=== PATIENT | male | born 1955 | race Caucasian/White ===

== ENCOUNTER 2016-08-04 14:35 | Emergency (ER) | payer OTHER ==
--- NOTE | 2016-08-04 16:11 | DIAGNOSTIC IMAGING REPORT ---
PROCEDURE: US SCROTUM/TESTICLE INDICATION: SCROTAL PAIN TECHNIQUE: Finch scale and color Doppler sonographic images through the scrotum were obtained. COMPARISON: None. FINDINGS: RIGHT TESTICLE: Measures 4.7 x 3.3 x 2.4 cm. Normal echo structure and vascularity. Small epididymal head cysts versus spermatoceles. LEFT TESTICLE: Measures 5.1 x 2.9 x 2.4 cm. Normal echo structure and vascularity. Small epididymal head cysts versus spermatoceles. IMPRESSION: 1. Normal testicles 2. Small bilateral epididymal head cysts versus spermatoceles.
--- NOTE | 2016-08-04 16:59 | ED ORDER SUMMARY ---
..... Patient: ILANA FRENCH OrderSheet [facility] VisitID: [id number] [place] [address] 61y, M Registration Date/Time: 08/04/2016 ORDER SHEET Weight: 77.1 kg Allergies: Codeine GENERAL ORDERS: CBC w Diff Urgent (14:53 08/04/2016 EKoroleva P.A.-C) (Ack 14:55 LNations ER Tech1) (15:22 CHernandez R.N.) CMP Urgent (14:53 08/04/2016 EKoroleva P.A.-C) (Ack 14:55 LNations ER Tech1) (15:22 CHernandez R.N.) UA-Culture if indicated Urgent (14:53 08/04/2016 EKoroleva P.A.-C) (Ack 14:55 LNations ER Tech1) (16:10 CHernandez R.N.) US Scrotum/Testicular Urgent (15:16 08/04/2016 EKoroleva P.A.-C) (Ack 15:19 LNations ER Tech1) (16:10 CHernandez R.N.) GC/Chlamydia, Urine (Urine, Clean Catch) (g) Urgent (15:40 08/04/2016 EKoroleva P.A.-C) (Ack 15:55 LNations ER Tech1) (16:10 CHernandez R.N.) MEDICATION ORDERS: Dexamethasone PO 8mg (NOW) (15:04 08/04/2016 EKoroleva P.A.-C) (Ack 15:22 CHernandez R.N.) (15:29 CHernandez R.N.) Amoxicillin PO 500 mg (NOW) (15:04 08/04/2016 EKoroleva P.A.-C) (Ack 15:22 CHernandez R.N.) (15:29 CHernandez R.N.) IV FLUIDS: ORDER SHEET NOTES: [Electronically signed by Mathew Chapa R.N. (17:13 08/04/2016)] [Electronically signed by Elena Perales PSachinASachin-C (21:03 08/04/2016)] [Electronically locked/signed by Mathew Chapa R.N. (17:13 08/04/2016)]
--- NOTE | 2016-08-04 16:59 | ED ORDER SUMMARY ---
..... Patient: ILANA FRENCH OrderSheet [facility] VisitID: [id number] [place] [address] 61y, M Registration Date/Time: 08/04/2016 ORDER SHEET Weight: 77.1 kg Allergies: Codeine GENERAL ORDERS: CBC w Diff Urgent (14:53 08/04/2016 EKoroleva P.A.-C) (Ack 14:55 LNations ER Tech1) (15:22 CHernandez R.N.) CMP Urgent (14:53 08/04/2016 EKoroleva P.A.-C) (Ack 14:55 LNations ER Tech1) (15:22 CHernandez R.N.) UA-Culture if indicated Urgent (14:53 08/04/2016 EKoroleva P.A.-C) (Ack 14:55 LNations ER Tech1) (16:10 CHernandez R.N.) US Scrotum/Testicular Urgent (15:16 08/04/2016 EKoroleva P.A.-C) (Ack 15:19 LNations ER Tech1) (16:10 CHernandez R.N.) GC/Chlamydia, Urine (Urine, Clean Catch) (g) Urgent (15:40 08/04/2016 EKoroleva P.A.-C) (Ack 15:55 LNations ER Tech1) (16:10 CHernandez R.N.) MEDICATION ORDERS: Dexamethasone PO 8mg (NOW) (15:04 08/04/2016 EKoroleva P.A.-C) (Ack 15:22 CHernandez R.N.) (15:29 CHernandez R.N.) Amoxicillin PO 500 mg (NOW) (15:04 08/04/2016 EKoroleva P.A.-C) (Ack 15:22 CHernandez R.N.) (15:29 CHernandez R.N.) IV FLUIDS: ORDER SHEET NOTES: [Electronically signed by Mathew Cahpa R.N. (17:13 08/04/2016)] [Electronically signed by Elena Perales PSachinASachin-C (21:03 08/04/2016)] [Electronically locked/signed by Mathew Chapa R.N. (17:13 08/04/2016)]
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
--- NOTE | 2016-08-04 16:59 | ED CLINICAL REPORT ---
Clinical Report - Physicians/Mid Levels [facility] [address] [place] [address] 08/04/2016 14:37 Patient: ILANA FRENCH Time Seen: 1453 Aug 04 2016. Arrived- By private vehicle. Historian- patient. HISTORY OF PRESENT ILLNESS Chief Complaint: right ear pain, right flank pain. This started yesterday and is still present. No weight loss or headache. (Patient reports a bee flew into his area second, and stung him, he has had right ear pain since. Patient reports swelling to the ear. He is not taking any medications for this. Denies any difficulty with sound. In addition patient reports right flank pain radiating into his testicle off and on for the last year. Denies any dysuria, urgency or frequency. Denies any nausea or vomiting, or diarrhea. Reports testicular pain earlier today, however none now. Denies any discharge. Denies any trauma.). REVIEW OF SYSTEMS No fever, chills or headache. All systems otherwise negative, except as recorded above. PAST HISTORY Problems: Lumbar Strain. Immunizations. Hepatitis C. Bowel Obstruction. Back Pain. Additional Surgeries: Back Surgery. Bowel resection. Bowel Surgery. Legs and back. Splenectomy. Medications: None. Allergies: Codeine. SOCIAL HISTORY Former smoker. Alcohol use. PHYSICAL EXAM Appearance: Alert. No acute distress. Eyes: Eyes normal inspection. ENT: Swelling of the right ear, small area of canal is present, able to see parts of the TM, no TM erythema, no visualized foreign body. Neck: Normal inspection. CVS: Normal heart rate and rhythm. Respiratory: No respiratory distress. Breath sounds normal. Abdomen: Soft. Bowel sounds normal. No rebound tenderness. : Normal genitalia. Testes descended. (Chaperoned with SUMMER Carmona.). LABS, X-RAYS, AND EKG Laboratory Tests: UA-Culture if indicated: (KRISTIN: 08/04/2016 16:05) ( MsgRcvd 08/04/2016 16:37) Final results Test Result Flag Units (Reference) URINE COLOR YELLOW URINE APPEARANCE CLEAR URINE GLUCOSE NEGATIVE (NEGATIVE) URINE BILIRUBIN NEGATIVE (NEGATIVE) URINE KETONE NEGATIVE (NEGATIVE) URINE SPECIFIC GRAVITY 1.020 (1.010-1.030) URINE PH 7.0 (5.0-8.0) URINE PROTEIN NEGATIVE (NEGATIVE) URINE UROBILINOGEN 0.2 EU/dL (0.2-1.0) URINE NITRITE NEGATIVE (NEGATIVE) URINE BLOOD NEGATIVE (NEGATIVE) URINE LEUK ESTERASE NEGATIVE (NEGATIVE) URINE RBC NONE SEEN rbc/hpf (0-1) URINE WBC 0-1 wbc/hpf (0-1) URINE EPITHELIAL CELLS RARE EPI/hpf (0-5) URINE BACTERIA TRACE (<1+) (NONE SEEN) URINE COMMENT CULT NOT INDICATED URINE CULTURES ARE SET-UP BASED ON THE FOLLOWING CRITERIA:POSITIVE NITRITEPOSITIVE LEUKOCYTE ESTERASEGREATER THAN 10 WHITE BLOOD CELLSMODERATE (2+) OR GREATER BACTERIA CBC w Diff: (KRISTIN: 08/04/2016 15:00) ( [facility] 08/04/2016 15:14) Final results Test Result Flag Units (Reference) WHITE BLOOD COUNT 4.7 K/uL (4.5-11.5) RED BLOOD COUNT 5.17 M/uL (4.50-5.90) HEMOGLOBIN 15.1 gm/dL (13.5-17.5) HEMATOCRIT 46.2 % (41.0-53.0) MEAN CELL VOLUME 89 fL (80-100) MEAN CORPUSCULAR HGB 29 pg (26-34) MEAN CORPUSCULAR HGB CONC 33 g/dL (31-37) RED CELL DISTRIBUTION WIDTH 12.9 % (11.6-14.8) PLATELET COUNT 215 K/uL (150-400) LYMPH % 33.7 % (25-40) MONO % 4.6 % (3-14) GRANULOCYTE % 61.7 CMP: (KRISTIN: 08/04/2016 15:00) ( [facility] 08/04/2016 15:32) Final results Test Result Flag Units (Reference) GLUCOSE 92 mg/dL (70-110) BUN 17 mg/dL (7-18) CREATININE 0.9 mg/dL (0.6-1.3) Estimated GFR >60 mL/min Estimated GFR- >60 mL/min Note: Persistent reduction over 3 months in eGFR<60 mL/min/1.73 m2 defines CKD. Patients with eGFR values>=60 mL/min/1.73 m2 may also have CKD if evidence ofpersistent proteinuria. Additional information may be foundat www.kidney.org. SODIUM 144 mmol/L (136-145) POTASSIUM 3.7 mmol/L (3.5-5.1) CHLORIDE 107 mmol/L (98-107) CARBON DIOXIDE 29 mmol/L (21-32) CALCIUM 9.1 mg/dL (8.5-10.1) TOTAL PROTEIN 7.3 g/dL (6.4-8.2) ALBUMIN 3.5 g/dL (3.3-5.0) BILIRUBIN, TOTAL 0.4 mg/dL (0.0-1.0) ALKALINE PHOSPHATASE 79 U/L (46-116) AST (SGOT) 40 H U/L (15-37) ALT (SGPT) 77 U/L (12-78) . PROGRESS AND PROCEDURES Course of Care: Small amount of the canal is visible on the right side, I did not visualize a foreign body in this area, however patient reports he believes there may still be there,he was started on antibiotics, steroids. There was no drainage of the ear. He will need hold for the ear to ensure improvement. In regard to his right flank pain, abdomen is soft nontender with no signs of acute surgical abdomen. Labs are as above and are unremarkable. Patient with negative ultrasound. 08/04/2016 17:11 BP: 121/76. HR: 90. RR: 16. O2 saturation: 100%. Temp: 98.2 F. Pain level now: 5/10. Patient is stable. Symptoms better. Patient/family counseled. Disposition: Discharged. Condition: good. CLINICAL IMPRESSION Acute right otitis media. Right otitis externa. Single insect bite. (R. ear). Acute right flank pain INSTRUCTIONS (Medical [facility] (establish primary care for follow up please) ). Warnings: Further evaluation is necessary. Prescription Medications: Amoxicillin 500 mg tablets: take 1 orally every 8 hours for 10 days. No refills. Cipro 500 mg: take 1 tab orally every 12 hours for 10 days. No refills. Substitution is permissible. OTC Medications: Benadryl Allergy 25 mg (available over the counter): take 1 orally every 8 hours for 5 days, as needed for itching. Dispense ten (10). No refill. Substitution is permissible. Follow-up: Follow up with your doctor in two days. Follow-up with: Aiden Burnett MD, ENT, , [address], , [place], [address] Follow up. Call for the next available appointment. (Electronically signed by Elena Perales P.A.-C 08/04/2016 21:03)
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
--- NOTE | 2016-08-04 21:04 | ED MED RECONCILIATION SUMMARY ---
Patient: ILANA FRENCH Medication Reconciliation Report [facility] VisitID: [id number] [place] [address] 61y, M Registration Date/Time: 08/04/2016 Weight: 77.1 kg Height/Length: 71 in. BMI: 23.7 ALLERGIES: Codeine The patient's Home Medications are listed below: NONE. The source(s) of the original Home Medication information: patient The following Medications were given to the patient in the Emergency Department: Dexamethasone [PO] PO 8 mg, administered: 08/04/2016 3:24:00 PM Amoxicillin [PO] PO 500 mg, administered: 08/04/2016 3:24:00 PM The following Medications were prescribed to the patient: Amoxicillin 500 mg tablets: take 1 orally every 8 hours for 10 days. No refills. -- Elena Perales, P.A.-Nawaf Cipro 500 mg: take 1 tab orally every 12 hours for 10 days. No refills. Substitution is permissible. -- Elena Perales, P.A.-Nawaf Benadryl Allergy 25 mg (available over the counter): take 1 orally every 8 hours for 5 days, as needed for itching. Dispense ten (10). No refill. Substitution is permissible. -- Elena Perales P.A.-C
--- NOTE | 2016-08-04 21:04 | ED DISCHARGE INSTRUCTIONS ---
Patient: ILANA FRENCH General Instructions Merged With [facility] VisitID: [id number] [place] [address] 61y, M Registration Date/Time: 08/04/2016 Acute right otitis media. Right otitis externa. Single insect bite. (R. ear). Acute right flank pain INSTRUCTIONS ([facility] (establish primary care for follow up please) ). Warnings: Further evaluation is necessary. Prescription Medications: Amoxicillin 500 mg tablets: take 1 orally every 8 hours for 10 days. No refills. Cipro 500 mg: take 1 tab orally every 12 hours for 10 days. No refills. Substitution is permissible. OTC Medications: Benadryl Allergy 25 mg (available over the counter): take 1 orally every 8 hours for 5 days, as needed for itching. Dispense ten (10). No refill. Substitution is permissible. Follow-up: Follow up with your doctor in two days. Follow-up with: Aiden Burnett MD, ENT, , [address], , [place], [id number] Follow up. Call for the next available appointment. ADDITIONAL INFORMATION External Ear Infection [Adult] This is an infection in the ear canal due to an overgrowth of bacteria or fungus. This often occurs a few days after water gets trapped in the ear canal (swimming or bathing). It may also occur after cleaning too deeply in the ear canal with a cotton swab or other object. Sometimes hair care products get into the ear canal and cause this problem. There may be itching, redness, drainage, or swelling of the ear canal and temporary loss of hearing. Home Care: Do not try to clean the ear canal. That could push pus and bacteria deeper into the canal. Use the drops prescribed to reduce swelling and fight the infection. If an EAR WICK was placed in the ear canal, apply drops right onto the end of the wick. The wick will draw the medicine into the ear canal even if it is swollen closed. Do not allow water to get into your ear when bathing. No swimming during this time. A cotton ball may be loosely placed in the outer ear to absorb any drainage. You may use acetaminophen (Tylenol) or ibuprofen (Motrin, Advil) to control pain, unless another medicine was prescribed. [NOTE: If you have chronic liver or kidney disease or ever had a stomach ulcer or GI bleeding, talk with your doctor before using these medicines.] Preventing Future Infections: You can usually avoid this problem by using an eardrop that removes the water from your ear canal when you feel there is water trapped there. You can get these drops over the counter (Swim Ear, Aqua Ear and other brands). Follow Up with your doctor or this facility in one week or as instructed by our staff. Get Prompt Medical Attention if any of the following occur: Ear pain becomes worse or does not begin to improve after 3 days of treatment Redness or swelling of the outer ear occurs or gets worse Headache, painful or stiff neck, Feeling drowsy or confused Fever of 100.4F (38C) or higher, or as directed by your healthcare provider Seizure Insect Bite/Sting, Infected You have been stung or bitten by an insect. Signs of infection include redness, itching, and slight swelling. Infections will need treatment with antibiotics and should improve over the next ten days. Home care The following will help you care for your bite or sting at home: If itching is a problem, applying ice packs to the sting area will help. Wash the area with soap and water at least three times a day. Apply a topical antibiotic cream or ointment. You can use an over-the counter antihistamine unless you were given a prescription antihistamine. Antihistamines may be used to reduce itching if large areas of the skin are involved. Use lower doses during the daytime and higher doses at bedtime since the drug may make you sleepy. Do not use an antihistamine if you have glaucoma or if you are a man with trouble urinating due to an enlarged prostate. Some antihistamines cause less drowsiness and are a good alternative for daytime use. If oral antibiotics have been prescribed, be sure to take them as directed until they are all finished. You may use acetaminophen or ibuprofen to control pain, unless another pain medicine was prescribed.If you have chronic liver or kidney disease or ever had a stomach ulcer or GI bleeding, talk with your doctor before using these medicines. Follow-up care Follow up with your doctor as directed if you do not improve over the next two days or if your symptoms worsen. When to seek medical care Get prompt medical attention if any of the following occur: Spreading areas of redness or swelling Swelling of the face, eyelids, mouth, throat, or tongue Difficulty swallowing or breathing Fever of 100.4F (38C) or higher, or as directed by your health care provider Increased local pain Headache, fever, chills, muscle or joint aching, vomiting, New rash Flank Pain[Uncertain Cause] The flank is the area between the upper abdomen and the back. Pain here is often related to the kidneyan infection or a kidney stone. Other causes of flank pain include spinal arthritis, pinched nerve from a disk injury, back muscle strain or spasm. The cause of your flank pain is not certain and further tests may be needed. Home Care: You may use acetaminophen (Tylenol) or ibuprofen (Motrin, Advil) to control pain, unless another medicine was prescribed. [NOTE: If you have chronic liver or kidney disease or ever had a stomach ulcer or GI bleeding, talk with your doctor before using these medicines.] If the cause of your pain is coming from the muscles, ice or heat may give relief. During the first two days after injury, apply an ICE PACK to the painful area for 20 minutes every 2-4 hours. This will reduce swelling and pain. HEAT (hot shower, hot bath or heating pad) works well for muscle spasm. You can start with ice, then switch to heat after two days. Some patients feel best alternating ice and heat treatments. Use the one method that feels the best to you. Follow Up with your doctor or as advised by our staff for further evaluation if your symptoms are not improving over the next few days. Return Promptly or contact your doctor if any of the following occur: Repeated vomiting Fever of 100.4F (38C) or higher, or as directed by your healthcare provider Increasing flank pain Pain that spreads to the front of the abdomen Dizziness, weakness or fainting Blood in your urine Burning with urination or frequent urination Increasing pain in the leg Numbness or weakness in the leg Amoxicillin Trihydrate Oral tablet What is this medicine? AMOXICILLIN (a mox i VU in) is a penicillin antibiotic. It is used to treat certain kinds of bacterial infections. It will not work for colds, flu, or other viral infections. How should I use this medicine? Take this medicine by mouth with a glass of water. Follow the directions on your prescription label. You may take this medicine with food or on an empty stomach. Take your medicine at regular intervals. Do not take your medicine more often than directed. Take all of your medicine as directed even if you think your are better. Do not skip doses or stop your medicine early. Talk to your java security engineer regarding the use of this medicine in children. While this drug may be prescribed for selected conditions, precautions do apply. What side effects may I notice from receiving this medicine? Side effects that you should report to your doctor or health cattle care worker as soon as possible: allergic reactions like skin rash, itching or hives, swelling of the face, lips, or tongue breathing problems dark urine redness, blistering, peeling or loosening of the skin, including inside the mouth seizures severe or watery diarrhea trouble passing urine or change in the amount of urine unusual bleeding or bruising unusually weak or tired yellowing of the eyes or skin Side effects that usually do not require medical attention (report to your doctor or health cattle care worker if they continue or are bothersome): dizziness headache stomach upset trouble sleeping What may interact with this medicine? amiloride control pills chloramphenicol macrolides probenecid sulfonamides tetracyclines What if I miss a dose? If you miss a dose, take it as soon as you can. If it is almost time for your next dose, take only that dose. Do not take double or extra doses. Where should I keep my medicine? Keep out of the reach of children. Store between 68 and 77 degrees F (20 and 25 degrees C). Keep bottle closed tightly. Throw away any unused medicine after the expiration date. What should I tell my health care provider before I take this medicine? They need to know if you have any of these conditions: asthma kidney disease an unusual or allergic reaction to amoxicillin, other penicillins, cephalosporin antibiotics, other medicines, foods, dyes, or preservatives or trying to get breast-feeding What should I watch for while using this medicine? Tell your doctor or health cattle care worker if your symptoms do not improve in 2 or 3 days. Take all of the doses of your medicine as directed. Do not skip doses or stop your medicine early. If you are diabetic, you may get a false positive result for sugar in your urine with certain brands of urine tests. Check with your doctor. Do not treat diarrhea with [id number] products. Contact your doctor if you have diarrhea that lasts more than 2 days or if the diarrhea is severe and watery. Ciprofloxacin Hydrochloride Oral tablet What is this medicine? CIPROFLOXACIN (sip marlene FLOX a sin) is a quinolone antibiotic. It is used to treat certain kinds of bacterial infections. It will not work for colds, flu, or other viral infections. How should I use this medicine? Take this medicine by mouth with a glass of water. Follow the directions on the prescription label. Take your medicine at regular intervals. Do not take your medicine more often than directed. Take all of your medicine as directed even if you think your are better. Do not skip doses or stop your medicine early. You can take this medicine with food or on an empty stomach. It can be taken with a meal that contains dairy or calcium, but do not take it alone with a dairy product, like milk or yogurt or calcium-fortified juice. A special MedGuide will be given to you by the pharmacist with each prescription and refill. Be sure to read this information carefully each time. Talk to your java security engineer regarding the use of this medicine in children. Special care may be needed. What side effects may I notice from receiving this medicine? Side effects that you should report to your doctor or health cattle care worker as soon as possible: - allergic reactions like skin rash, itching or hives, swelling of the face, lips, or tongue - breathing problems - confusion, nightmares or hallucinations - feeling faint or lightheaded, falls - irregular heartbeat - joint, muscle or tendon pain or swelling - pain or trouble passing urine -persistent headache with or without blurred vision - redness, blistering, peeling or loosening of the skin, including inside the mouth - seizure - unusual pain, numbness, tingling, or weakness Side effects that usually do not require medical attention (report to your doctor or health cattle care worker if they continue or are bothersome): - diarrhea - nausea or stomach upset - white patches or sores in the mouth What may interact with this medicine? Do not take this medicine with any of the following medications: cisapride droperidol terfenadine tizanidine This medicine may also interact with the following medications: antacids caffeine cyclosporin didanosine (ddI) buffered tablets or powder medicines for diabetes medicines for inflammation like ibuprofen, naproxen methotrexate multivitamins omeprazole phenytoin probenecid sucralfate theophylline warfarin What if I miss a dose? If you miss a dose, take it as soon as you can. If it is almost time for your next dose, take only that dose. Do not take double or extra doses. Where should I keep my medicine? Keep out of the reach of children. Store at room temperature below 30 degrees C (86 degrees F). Keep container tightly closed. Throw away any unused medicine after the expiration date. What should I tell my health care provider before I take this medicine? They need to know if you have any of these conditions: -bone problems -cerebral disease -joint problems -irregular heartbeat -kidney disease -liver disease -myasthenia gravis -seizure disorder -tendon problems -an unusual or allergic reaction to ciprofloxacin, other antibiotics or medicines, foods, dyes, or preservatives - or trying to get -breast-feeding What should I watch for while using this medicine? Tell your doctor or health cattle care worker if your symptoms do not improve. Do not treat diarrhea with over the counter products. Contact your doctor if you have diarrhea that lasts more than 2 days or if it is severe and watery. You may get drowsy or dizzy. Do not drive, use machinery, or do anything that needs mental alertness until you know how this medicine affects you. Do not stand or sit up quickly, especially if you are an older patient. This reduces the risk of dizzy or fainting spells. This medicine can make you more sensitive to the sun. Keep out of the sun. If you cannot avoid being in the sun, wear protective clothing and use sunscreen. Do not use sun lamps or tanning beds/booths. Avoid antacids, aluminum, calcium, iron, magnesium, and zinc products for 6 hours before and 2 hours after taking a dose of this medicine. You have been given the following additional information: External Ear Infection (Adult) Insect Sting/Bite, Infected Flank Pain, Uncertain Cause Amoxicillin Trihydrate Oral tablet Ciprofloxacin Hydrochloride Oral tablet (Electronically signed by Elena Perales P.A.-C 08/04/2016 21:03)
--- NOTE | 2016-08-04 21:04 | ED MAR SUMMARY ---
..... Medication Administration Record [facility] [address] [place] [address] Patient: ILANA FRENCH Visit ID: [id number] 61y, M Weight: 77.1 kg Height/Length: 71 in BMI: 23.7 ALLERGIES: Codeine Given 15:08/04/2016 Mathew Chapa R.N. Medication Administered: DEXAMETHASONE [PO] (DEXAMETHASONE), Dose: 8 mg Tablets PO. Medication Ordered: Dexamethasone PO 8mg (NOW). Given 15:08/04/2016 Mathew Chapa RSachinNSachin Medication Administered: AMOXICILLIN [PO], Dose: 500 mg Capsules PO. Medication Ordered: Amoxicillin PO 500 mg (NOW).
--- NOTE | 2016-08-04 21:04 | ED MED RECONCILIATION SUMMARY ---
Patient: ILANA FRENCH Medication Reconciliation Report [facility] VisitID: [id number] [place] [address] 61y, M Registration Date/Time: 08/04/2016 Weight: 77.1 kg Height/Length: 71 in. BMI: 23.7 ALLERGIES: Codeine The patient's Home Medications are listed below: NONE. The source(s) of the original Home Medication information: patient The following Medications were given to the patient in the Emergency Department: Dexamethasone [PO] PO 8 mg, administered: 08/04/2016 3:24:00 PM Amoxicillin [PO] PO 500 mg, administered: 08/04/2016 3:24:00 PM The following Medications were prescribed to the patient: Amoxicillin 500 mg tablets: take 1 orally every 8 hours for 10 days. No refills. -- Elena Perales, P.A.-Nawaf Cipro 500 mg: take 1 tab orally every 12 hours for 10 days. No refills. Substitution is permissible. -- Elena Perales, P.A.-Nawaf Benadryl Allergy 25 mg (available over the counter): take 1 orally every 8 hours for 5 days, as needed for itching. Dispense ten (10). No refill. Substitution is permissible. -- Elena Perales P.A.-C
--- NOTE | 2016-08-04 21:04 | ED MAR SUMMARY ---
..... Medication Administration Record [facility] [address] [place] [address] Patient: ILANA FRENCH Visit ID: [id number] 61y, M Weight: 77.1 kg Height/Length: 71 in BMI: 23.7 ALLERGIES: Codeine Given 15:08/04/2016 Mathew Chapa R.N. Medication Administered: DEXAMETHASONE [PO] (DEXAMETHASONE), Dose: 8 mg Tablets PO. Medication Ordered: Dexamethasone PO 8mg (NOW). Given 15:08/04/2016 Mathew Chapa RSachinNSachin Medication Administered: AMOXICILLIN [PO], Dose: 500 mg Capsules PO. Medication Ordered: Amoxicillin PO 500 mg (NOW).
== END 2016-08-04 17:12 | disposition home or self-care (01) ==
LOC: ED SRH 14:35
DX: H66.91 Otitis media, unspecified, right ear (principal); H60.91 Unspecified otitis externa, right ear; S00.461A Insect bite (nonvenomous) of right ear, initial encounter; R10.9 Unspecified abdominal pain; N50.811 Right testicular pain; W57.XXXA Bitten or stung by nonvenomous insect and other nonvenomous arthropods, initial encounter; Y93.9 Activity, unspecified; Y99.9 Unspecified external cause status; Y92.9 Unspecified place or not applicable; Z87.891 Personal history of nicotine dependence; Z88.5 Allergy status to narcotic agent
CPT/HCPCS: 90004; 90100; 91227; 91228; 95059